=== PATIENT | male | born 1980 | race Two or more races ===

== ENCOUNTER 2018-10-15 13:11 | Inpatient (IN) | payer BC ==
[~2018-10-15] VITALS: Ht 322.6 cm; Wt 59.9 kg
[2018-10-15] MEDS ORDERED: TETANUS, DIPHTHERIA, PERTUSSIS VAC/PF 0.5ML (>7YR OLD) IM ONE (14:30)
[2018-10-15] MEDS ORDERED: IBUPROFEN 600MG TABLET PO ONE (14:30)
[2018-10-15] MEDS ORDERED: LIDOCAINE 1%/EPI 1:100,000 10 ML VIAL IJ ONE (14:30)
[2018-10-15] MEDS ORDERED: BACITRACIN ZINC OINT UDPKT TOP ONE (14:30)
[2018-10-15 14:52] LABS: CHLORIDE 104 mEq/L (98-107)
[2018-10-15 14:54] LABS: BASOPHILS % 0.4 % (0.0-2.0); EOSINOPHILS % 0.2 % (0.0-5.0); HEMATOCRIT. 43.8 % (42.0-52.0); HEMOGLOBIN. 14.8 g/dL (14.0-18.0); LYMPHOCYTES % 13.2 % (20.0-50.0); MEAN CORPUSCULAR HEMOGLOBIN 30.8 pg (28.0-32.0); MEAN CORPUSCULAR VOLUME 90.9 fL (80.0-94.0); MEAN PLATELET VOLUME 6.2 fl (7.4-10.4); MONOCYTES % 8.7 % (2.0-8.0); NEUTROPHILS % 77.5 % (40.0-76.0); PLATELET 328 x1000/uL (130-400); RED BLOOD CELL COUNT 4.83 mill/uL (4.7-6.1); RED CELL DISTRIBUTION WIDTH 12.5 % (11.6-14.6)
[2018-10-15] MEDS ORDERED: DOXYCYCLINE HYCLATE 100MG CAPSULE PO ONE (16:00)
[2018-10-15] MEDS ORDERED: CEPHALEXIN 250MG CAPSULE PO ONE (16:00)
[2018-10-15] MEDS ORDERED: VANCOMYCIN 1 G PREMIX 200 ML IV SCH (16:15)
[2018-10-15] MEDS ORDERED: CEFTRIAXONE 1 G PREMIX 50 ML IV ONE (16:15)
[2018-10-15 17:20] LABS: CLARITY URINE CLEAR (CLEAR); COLOR URINE YELLOW (YELLOW); KETONES URINE NEGATIVE (NEGATIVE); LEUKOCYTE ESTERASE URINE NEGATIVE (NEGATIVE); NITRITE URINE NEGATIVE (NEGATIVE); OCCULT BLOOD URINE NEGATIVE (NEGATIVE); PH URINE 5.5 (4.5-8.0); PROTEIN URINE NEGATIVE (NEGATIVE); SPECIFIC GRAVITY URINE 1.011 (1.005-1.030); UROBILINOGEN URINE 0.2 E.U./dL (0.2-1.0)
[2018-10-15 17:31] LABS: *BARBITURATES SCREEN URINE NEGATIVE (NEGATIVE)
[2018-10-15 17:32] LABS: *BENZODIAZEPINES SCREEN URINE NEGATIVE (NEGATIVE); *COCAINE SCREEN URINE NEGATIVE (NEGATIVE); CANNABINOID URINE SCREEN PRESUMTIVE POSITIVE (NEGATIVE); METHADONE URINE SCREEN NEGATIVE (NEGATIVE); OPIATES URINE SCREEN NEGATIVE (NEGATIVE); PHENCYCLIDINE URINE SCREEN NEGATIVE (NEGATIVE)
[2018-10-15 17:33] LABS: *AMPHETAMINES SCREEN URINE NEGATIVE (NEGATIVE)
[2018-10-15] MEDS ORDERED: IOHEXOL-300 100 ML BOTTLE ONE (18:21)
[2018-10-16] VITALS (7 sets, daily range): BP systolic 99–109; BP diastolic 56–64
[2018-10-16] MEDS ORDERED: ACETAMINOPHEN 325MG TABLET PO PRN (01:15)
[2018-10-16] MEDS ORDERED: ONDANSETRON HCL 4MG/2ML INJ IV PRN (01:15)
[2018-10-16] MEDS: SODIUM CHLORIDE 0.45% 1,000 ML IV SCH ×2 (02:48→21:19)
[2018-10-16] MEDS: VANCOMYCIN 1 G PREMIX 200 ML IV SCH ×3 (02:49→18:36)
[2018-10-16] MEDS: HYDROCODONE/ACETAMINOPHEN 5/325MG TABLET PO PRN ×3 (11:48→21:12)
[2018-10-16] MEDS ORDERED: LIDOCAINE HCL/EPINEPHRINE 1%-EPI 1:100,000 30 ML VIAL INFIL ONE (13:30)
[2018-10-16] MEDS ORDERED: LIDOCAINE HCL/EPINEPHRINE 1%-EPI 1:100,000 20 ML VIAL INFIL NR (14:00)
[2018-10-17] VITALS: BP 105/61
[2018-10-17] MEDS: HYDROCODONE/ACETAMINOPHEN 5/325MG TABLET PO PRN (01:49)
[2018-10-17] MEDS: VANCOMYCIN 1 G PREMIX 200 ML IV SCH ×2 (02:06→10:25)
[2018-10-17 04:00] VITALS: BP 99/65
[2018-10-17 07:51] VITALS: BP 112/62
[2018-10-17 09:38] LABS: EOSINOPHILS % 2.1 % (0.0-5.0); HEMATOCRIT. 42.6 % (42.0-52.0); HEMOGLOBIN. 14.3 g/dL (14.0-18.0); LYMPHOCYTES % 26.9 % (20.0-50.0); MEAN CORPUSCULAR HEMOGLOBIN 30.5 pg (28.0-32.0); MEAN CORPUSCULAR VOLUME 91.1 fL (80.0-94.0); MEAN PLATELET VOLUME 6.4 fl (7.4-10.4); PLATELET 358 x1000/uL (130-400); RED BLOOD CELL COUNT 4.67 mill/uL (4.7-6.1); RED CELL DISTRIBUTION WIDTH 12.5 % (11.6-14.6)
[2018-10-17 09:45] LABS: CHLORIDE 106 mEq/L (98-107)
[2018-10-17 09:53] LABS: VANCOMYCIN TROUGH 21.5 ug/mL (5.0-10.0)
[2018-10-17 11:42] VITALS: BP 102/61
[2018-10-17 12:00] VITALS: BP 102/61
[2018-10-17] MEDS ORDERED: VANCOMYCIN 1250MG in DEXTROSE 5% WATER 250ML IV SCH (18:00)
== END 2018-10-17 13:04 | disposition home or self-care (01) | DRG 571 ==
LOC: ER 13:30 → 6EST 19:39 → EDBEDREQTM 19:45 → EDBEDREQ 19:45 → ENRESERV 21:10
PROVIDERS: ADMIT Hospitalist; ATTEND Hospitalist
PROC: 0JBH0ZZ Excision of Left Lower Arm Subcutaneous Tissue and Fascia, Open Approach (ICD-10-PCS; principal; 2018-10-16)
DX: L03.211 Cellulitis of face (principal); L02.414 Cutaneous abscess of left upper limb; L02.01 Cutaneous abscess of face; F12.90 Cannabis use, unspecified, uncomplicated
CPT/HCPCS: 36415; 70487; 80048; 80202; 80305; 83605; 87070; 87075; 87077; 90715; 96374; 99285; J0696; J3370; J3490; J7060; Q9967